=== PATIENT | female | born 1950 | race Caucasian/White ===

== ENCOUNTER 2023-11-18 10:22 | Emergency (ER) | payer MEDICARE, SELFPAY ==
[2023-11-18 10:45] VITALS: BP 162/86
--- NOTE | 2023-11-18 11:41 | ED.GENMED ---
History of Present Illness
General
Chief Complaint: Chest Pain
Time Seen by Provider: 11/18/23 11:11
Travel History
Have you had any contact with someone who has COVID-19?: No
Do you have any symptoms of coronavirus? Fever > 100 degrees, chills, cough, shortness of breath, sore throat, loss of taste or smell, muscle aches, or headache?: No
History of Present Illness
History of Present Illness:
73-year-old female presents the emergency department for evaluation of right-sided chest discomfort for the past several days. She states that she had an ongoing cough and respiratory illness last week associated with this chest pain, was seen in
urgent care and placed on a 6-day course of steroids which she feels essentially resolved the pain until the steroids were completed and the pain returned. She reports mildly pleuritic pain that is worse when lying on her right side. Denies any
fevers, chills, or sweats. Denies any postprandial pain or right upper abdominal pain. No increased pain with exertion.
Review of Systems
Review of Systems
Allergies reviewed?: Yes
All Other Systems: ROS reviewed and negative except as documented in HPI and ROS
Phy Exam
Physical Exam
Physical Exam:
GEN: Well appearing, NAD, WDWN
Eyes: PERRLA, EOMs intact, no scleral icterus
HENT: NCAT, oral mucosa moist
Lungs: CTAB, no wheezes, rales, rhonchi, normal chest wall excursion
Cardiac: RRR, no M/R/G, no peripheral edema. Radial pulses 2+ bilat
Abdomen: S, NT, ND, NABS, no masses or hepatosplenomegaly
Neuro: AO x 3, no focal deficits to BUE/BLE, normal sensation throughout
MSK: No gross deformity or ecchymosis.
Skin: No rashes, petechiae. Normal color, no pallor or jaundice.
Psych: Calm, cooperative, proper hygiene
Scores
Heart Score for Chest Pain Patients
STEMI patient?: Not applicable
Course
Orders/Labs/Results
Orders:
Orders
11/18/23 10:39
ECG [Electrocardiogram (*1)] Urgent
Reason for Study: Chest Pain
EKG- Treatment ONCE
11/18/23 11:40
CR Chest - 2 Views Urgent
Comment:
Reason For Exam: R sided chest pain/cough
Vital Signs
Initial and Last Documented VS:
Initial Vital Signs
Temp Pulse Resp BP Pulse Ox
98.4 F 67 18 162/86 97
11/18/23 10:45 11/18/23 10:45 11/18/23 10:45 11/18/23 10:45 11/18/23 10:45
Last Documented Vital Signs
Temp Pulse Resp BP Pulse Ox
98.4 F 74 18 157/72 98
11/18/23 10:45 11/18/23 12:23 11/18/23 12:23 11/18/23 12:23 11/18/23 12:23
MDM/Problems Addressed
MDM/Problems Addressed:
Patient's EKG independently interpreted by me is unremarkable with no signs of ischemia. Chest x-ray pending turbid by me shows no acute osseous or cardiopulmonary abnormalities. Patient's pain is likely pleurisy in the setting of her recent URI
particular given that steroids seem to relieve the symptoms before they again recurred. Would hesitate to put her on another course of steroids at this point, we will start her on prescription NSAIDs. She has no abdominal tenderness concerning for
biliary colic
*Critical Care Note
Total Time (30-74mins, 75-104mins- exclusive of procedures): Not Applicable
ED Attending Note
-
Portions of this chart may have been created with voice recognition software.� Occasional wrong word or��sound alike� substitutions may have occurred due to the inherent limitations of voice recognition software.
Discharge Plan
Departure
Patient Disposition: Home (Routine Discharge)
Date of Disposition: 11/18/23
Time of Disposition: 12:08
Patient with high blood pressure during this ER visit?: Yes
Discharge Problem:
Pleuritis
Instructions: Pleurisy
Prescriptions:
New
meloxicam 15 mg tablet
15 mg PO DAILY Qty: 20 0RF
Referrals:
Theron Vaca MD [Family Provider] -
Interventions
Interventions:
*Risk Screen - Suicide Last Done: 11/18/23 11:42
*General Assessment Last Done: 11/18/23 11:42
*Neglect/Abuse Screening Last Done: 11/18/23 11:42
ED- Fall Risk Assessment Last Done: 11/18/23 11:42
*ED COVID-19 Vaccine History Last Done: 11/18/23 10:45
*Nursing Disposition Last Done: 11/18/23 12:25
ED- Cardiac Assessment Last Done: 11/18/23 11:42
Discharge Date and Time
Discharge Date/Time: 11/18/23 12:35
[2023-11-18 12:23] VITALS: BP 157/72
== END 2023-11-18 12:35 | disposition home or self-care (01) ==
LOC: EMR 10:22
PROVIDERS: EMERGENCY PHYSICIAN Emergency Medicine; FAMILY PHYSICIAN Internal Medicine
DX: R09.1 Pleurisy (principal); R07.89 Other chest pain; R05.9 Cough, unspecified; R03.0 Elevated blood-pressure reading, without diagnosis of hypertension
CPT/HCPCS: 99284; 71046; 93005